=== PATIENT | female | born 1965 ===

== ENCOUNTER 2017-05-11 23:03 | Emergency (ER) | payer SELFPAY ==
[~2017-05-11] VITALS: Ht 157.5 cm; Wt 90.2 kg
[2017-05-11 23:13] VITALS: Ht 157.5 cm; Wt 90.2 kg
== END 2017-05-12 00:02 | disposition left against medical advice (07) ==
LOC: E/R 23:03
DX: Z53.21 Procedure and treatment not carried out due to patient leaving prior to being seen by health care provider (principal)
CPT/HCPCS: 93005